=== PATIENT | male | born 1990 | race Caucasian/White ===

== ENCOUNTER 2024-10-23 12:31 | Outpatient (CLI) | payer OTHER, SELFPAY ==
[2024-10-23 15:29] LABS: Chlamydia DNA Amplified* NOT DETECTED (No Detected); GC DNA Amplified* NOT DETECTED (No Detected)
== END 2024-10-23 12:32 | disposition home or self-care (01) ==
PROVIDERS: Visit Provider Nurse Practitioner Family
DX: Z11.3 Encounter for screening for infections with a predominantly sexual mode of transmission (principal); Z11.4 Encounter for screening for human immunodeficiency virus [HIV]; Z11.59 Encounter for screening for other viral diseases
CPT/HCPCS: 86592; 86703; 86803; 87491; 87529; 87591